=== PATIENT | male | born 1985 | race Two or more races ===

== ENCOUNTER 2025-06-05 09:07 | Emergency (ER) | payer MEDICAID, OTHER ==
[~2025-06-05] VITALS: Ht 172.7 cm; Wt 97.7 kg
--- NOTE | 2025-06-05 09:50 | ED.PDOC ---
SOB-HPI HPI Comments A 39-YEAR-OLD MALE PRESENTS TO THE ED WITH C/C OF FLU-LIKE SYMPTOMS. THE PATIENT STATES HE HAS BEEN HAVING SORE THROAT,COUGH CONGESTION RHINORRHEA FOR THE PAST 2 WEEKS. PATIENT STATES THAT HE DID GO TO URGENT CARE AND STATES THAT HE WAS DX WITH PHARYNGITIS AND GIVEN PRESCRIPTION OF AMOXICILLIN FOR THE PAST 1 WEEK. PATIENT HAS HAD DESPITE BEING COMPLIANT HE HAS CONTINUED TO HAVE SYMPTOMS. PATIENT IN THE ED OTHERWISE HAD NOTED STABLE VITALS. PATIENT OTHERWISE DENIES FEVER CHILLS NAUSEA VOMITING SHORTNESS OF BREATH OR CHEST PAIN. PATIENT OTHERWISE DENIED ANY OTHER SYMPTOMS AT THIS TIME. Chief Complaint: Flu like Time Seen by MD: 09:47 Reviewed notes: Nurses Notes, Medications, Allergies Information Source: Patient Mode of Arrival: Ambulatory Severity: Mild, Moderate Timing: Days Duration: Since onset, Days Context: Spontaneous Onset History of: Recent URI, Recent Antibiotic Associated Signs and Symptoms: Cough, Nasal Congestion, Sore Throat If cough with SOB: Productive Past Medical History Pediatric Medical History: Denies Immunizations: Current Medical History: Denies Operations: Denies Family History Family History: Reviewed,noncontributory to illness Social History Smoking: Non-Smoker Alcohol: Denies ETOH Use Drugs: Denies Drug Use Lives In: Home Constitutional: denies: chills, diaphoresis, fatigue, fever, malaise, sweats, weakness, others EENTM: reports: nose congestion, throat pain, throat swelling; denies: blurred vision, double vision, ear bleeding, ear discharge, ear drainage, ear pain, ear ringing, eye pain, eye redness, hearing loss, mouth pain, mouth swelling, nasal discharge, nose bleeding, nose pain, photophobia, tearing, voice changes, others Respiratory: reports: cough; denies: hemoptysis, orthopnea, SOB at rest, shortness of breath, SOB with excertion, stridor, wheezing, others Cardiovascular: denies: chest pain, dizzy spells, diaphoresis, Dyspnea on exertion, edema, irregular heart beat, left arm pain, lightheadedness, palpitations, PND, syncope, others Gastrointestinal: denies: abdomen distended, abdominal pain, blood streaked bowels, constipated, diarrhea, dysphagia, difficulty swallowing, hematemesis, melena, nausea, poor appetite, poor fluid intake, rectal bleeding, rectal pain, vomiting, others Genitourinary: denies: burning, dysuria, flank pain, frequency, hematuria, incontinence, penile discharge, penile sore, pain, testicle pain, testicle swelling, urgency, others Neurological: denies: dizziness, fainting, headache, left sided numbness, left sided weakness, numbness, paresthesia, pre-existing deficit, right sided numbness, right sided weakness, seizure, speech problems, tingling, tremors, weakness, others Musculoskeletal: denies: back pain, gout, joint pain, joint swelling, muscle pain, muscle stiffness, neck pain, others Integumetry: denies: bruises, change in color, change in hair/nails, dryness, laceration, lesions, lumps, rash, wounds, others Allergic/Immunocompromised: denies: Difficulty Healing, Frequent Infections, Hives, Itching, others Hematologic/Lymphatic: denies: anemia, blood clots, easy bleeding, easy bruising, swollen glands, others Endocrine: denies: excessive hunger, excessive sweating, excessive thirst, excessive urination, flushing, intolerance to cold, intolerance to heat, unexplained weight gain, unexplained weight loss, others Psychiatric: denies: anxiety, bipolar disorder, depression, hopeless, panic disorder, schizophrenia, sleepless, suicidal, others All Other Systems: Reviewed and Negative Physical Exam General Appearance: No Apparent Distress, Normal HEENT: PERRL/EOMI, Pharyngeal Erythema (TONSILLAR SWELLING, NO EXUDATES. ), TMs Normal Neck: Full Range of Motion, Non-Tender, Normal, Normal Inspection Respiratory: Chest Non-Tender, Expiration, No Accessory Muscle Use, No Respiratory Distress, Rhonchi Cardiovascular: No Edema, No JVD, No Murmur, No Gallop, Normal Peripheral Pulses, Regular Rate/Rhythm Breast Exam: Deferred Gastrointestinal: No Organomegaly, Non Tender, No Pulsatile Mass, Normal Bowel Sounds, Soft Genitalia: Deferred Pelvic: Deferred Rectal: Deferred Extremities: No calf tenderness, Normal capillary refill, Normal inspection, Normal range of motion, Non-tender, No pedal edema Musculoskeletal : Apperance: Normal Neurologic: Alert, heat and frost insulator II-XII nml as Tested, No Motor Deficits, Normal Affect, Normal Mood, No Sensory Deficits Cerebellar Function: Normal Reflexes: Normal Skin: Dry, Normal Color, Warm Peripheral Pulses: 2+ carotid (R), 2+ carotid (L) Lymphatic: No Adenopathy Was a procedure done? Was a procedure done?: No Differential Dx Differential Diagnosis: Bronchitis, Pneumonia, Sinusitis, Allergic Rhinitis, Pharyngitis, URI, Other (TONSILLITIS) X-Ray, Labs, Meds, VS Vital Signs Date Time Temp Pulse Resp B/P (MAP) Pulse Ox O2 Delivery O2 Flow Rate FiO2 06/05/25 09:09 98.3 71 18 128/89 96 98.3 Current Medications Medications (Trade) Dose Ordered Sig/Lisseth Route Start Time Stop Time Status Last Admin Ceftriaxone Sodium (Rocephin) 1,000 mg ONCE ONCE IM 06/05/25 09:45 06/05/25 09:46 DC 06/05/25 09:57 [place] [id number] Ph: [phone] DIAGNOSTIC IMAGING Diagnostic Imaging Report : [id number] Signed PATIENT: DONATO ERICKSONACCT: [id number] UNIT: [id number] : 1985 LOC: ER ROOM / BED: / AGE / SEX: 39 / M ADM STATUS: REG ER SERVICE 0 ORDERING PHYSICIAN: GRACE ONEILL PROCEDURE(s): CXR1 - CHEST XRAY 1 VIEW REASON: COUGH ORDER NUMBER(s): [id number], ACCESSION NUMBER(s): [id number] CLINICAL HISTORY: COUGH TECHNIQUE: Single view of the chest was obtained. COMPARISON: None FINDINGS: The heart size and pulmonary vasculature are normal. The lungs are clear. IMPRESSION: NO ACUTE CARDIOPULMONARY PROCESS. ATED BY: NAOMY GEE MD DICTATED DATE/TIME: 06/05/25945 SIGNED BY: NAOMY GEE MD SIGNED DATE/TIME: 06/05/25945 CC: X-Ray, Labs, Meds, VS Comment COURSE: EXTERNAL MEDICAL RECORDS REVIEWED: [NONE] INDEPENDENT HISTORIANS: [NONE] SOCIAL DETERMINANTS OF HEALTH: [NONE] LABS ORDERED: NONE REVIEWED AND INTERPRETED RESULTS: NONE IMAGING ORDERED: CHEST X-RAY TREATMENTS ORDERED: ROCEPHIN 1 GRAM, PROCEDURES PERFORMED: NONE CRITICAL CARE TIME: NONE I HAVE DISCUSSED THE PATIENT WITH THE ATTENDING PHYSICIAN, , SHE AGREES WITH THE PATIENT'S PLAN OF CARE AND DISPOSITION. BASED ON HISTORY OF PRESENT ILLNESS, AND PHYSICAL EXAM, PATIENT WILL BE DISCHARGED HOME. DISCUSSED PLAN FOR DISCHARGE HOME WITH RX: TESSALON 200MG. MEDICATION WARNINGS GIVEN. SHARED DECISION MAKING: DISCUSSED WITH PATIENT THAT THEIR WORKUP WAS NORMAL. PATIENT INSTRUCTED TO FOLLOW UP WITH PRIMARY CARE PROVIDER IN 1-2 DAYS FOR RE- EVALUATION OF SYMPTOMS. PATIENT VERBALIZES UNDERSTANDING TO RETURN TO ED FOR NEW OR WORSENING SYMPTOMS OR IF FOLLOW UP WITH PCP CANNOT BE OBTAINED. PATIENT FEELS COMFORTABLE GOING HOME AT THIS TIME. ALL QUESTIONS ADDRESSED AT TIME OF DISCHARGE. Time of 1ST Reevaluation: 10:20 Reevaluation 1ST: Improved Patient Education/Counseling: Diagnosis, Treatment Family Education/Counseling: Diagnosis, Treatment Medical Screening: No EMC Exist At This Time Departure 1 Departure Time of Disposition: 10:20 Impression: Primary Impression: Acute bronchitis Qualified Codes: J20.9 - Acute bronchitis, unspecified Additional Impression: Acute tonsillitis Qualified Codes: J03.90 - Acute tonsillitis, unspecified Disposition: HOME / SELF CARE / HOMELESS Condition: Stable Additional Instructions: F/U PCP IN 2 DAYS RECHECK. IF CONDITION BECOME WORSE, RETURN TO ED [facility]. e-Prescriptions Benzonatate (Benzonatate) 200 Mg Cap 1 CAP PO TID, #30 CAP Prov: GRACE ONEILL 06/05/25 Discharged With: Self Critical Care Note Critical Care Time?: No Stability Stability form required: No I personally scribed for GRACE ONEILL ([email or web address]) on 06/05/25 at 09:50. Electronically submitted by Inez Gonsalez ([employer]). I personally scribed for GRACE ONEILL ([email or web address]) on 06/05/25 at 09:52. Electronically submitted by Inez Gonsalez ([employer]). I personally scribed for GRACE ONEILL ([email or web address]) on 06/05/25 at 09:55. Electronically submitted by Inez Gonsalez ([employer]). GRAEC ONEILL Jun 05, 2025 09:50
[2025-06-05] MEDS ORDERED: BENZ200C64 PO (09:56)
[2025-06-05] MEDS: cefTRIAXone SOD 1,000 MG VL IM ONE (09:57)
[2025-06-05 10:02] VITALS: BP 128/89; PULSE 71; RESP 18; TEMP 98.3; O2SAT 96
== END 2025-06-05 10:05 | disposition home or self-care (01) ==
LOC: ER 09:07
DX: J20.9 Acute bronchitis, unspecified (principal); J03.90 Acute tonsillitis, unspecified; Z79.899 Other long term (current) drug therapy
CPT/HCPCS: 71045; 96372; 99283; J0696